=== PATIENT | female | born 1990 | race Caucasian/White ===

== ENCOUNTER 2017-05-03 23:52 | Inpatient (IN) | payer BC ==
[~2017-05-03] VITALS: Ht 154.9 cm; Wt 54.4 kg
[2017-05-03 23:56] VITALS: BP 132/102
--- NOTE | 2017-05-04 00:01 | NUR ---
PT [facility]. TAKEN TO BED 1
--- NOTE | 2017-05-04 00:15 | NUR ---
26Y BIBA C/O ODONNELL WHILE AT HOME. PT DENIES N/V/D; SKIN IS PINK/WARM/DRY; AAOX4 WITH EVEN AND STEADY GAIT; LUNGS CLEAR BL; PT DENIES ANY FEVER, CP, SOB, OR COUGH AT THIS TIME; PATIENT STATES PAIN OF 9/10 AT THIS TIME; VSS; PATIENT POSITIONED FOR COMFORT; HOB ELEVATED; BEDRAILS UP X2; BED DOWN. ER MD MADE AWARE OF PT STATUS.
--- NOTE | 2017-05-04 00:16 | NUR ---
Patient being evaluated by physician at bedside.
[2017-05-04 00:38] LABS: HEMOGLOBIN 14.7 g/dL (12.0-16.0); MEAN CORPUSCULAR HEMOGLOBIN 34 pg (27-31); MEAN CORPUSCULAR HGB CONC 34 g/dL (33-37); MEAN CORPUSCULAR VOLUME 101 fL (80-94); PLATELET COUNT (AUTO) 105 K/uL (140-450); RED BLOOD CELL COUNT(AUTO) 4.36 MIL/uL (4.20-5.40); RED CELL DISTRIBUTION WIDTH 11.7 % (11.6-13.7); WHITE BLOOD COUNT (AUTO) 4.5 K/uL (4.8-10.8)
[2017-05-04 00:51] LABS: BILIRUBIN,URINE NEGATIVE (NEGATIVE); BLOOD, URINE NEGATIVE (NEGATIVE); COLOR,URINE YELLOW (YELLOW); LEUKOCYTE ESTERASE ,URINE NEGATIVE (NEGATIVE); NITRITE, URINE POSITIVE (NEGATIVE); UGLUCOSE 2+ (NEGATIVE)
[2017-05-04 00:54] LABS: ANION GAP 11.8 (8-16); CARBON DIOXIDE 30.8 mmol/L (21-32); CHLORIDE 95 mmol/L (98-107); CREATININE 0.8 mg/dL (0.6-1.3); GFR ARICAN-AMERICAN 110 mL/min (>90); GLUCOSE 251 mg/dL (74-106); POTASSIUM 3.6 mmol/L (3.5-5.1); SODIUM SERUM 134 mmol/L (136-145); UREA NITROGEN, BLOOD 6 mg/dL (7-18)
[2017-05-04 00:55] LABS: APPEARANCE,URINE SLIGHTLY HAZY (CLEAR)
[2017-05-04 00:59] LABS: ALBUMIN 3.5 g/dL (3.4-5.0); ASPARTATE AMINOTRANSFERASE 237 U/L (15-37); LIPASE 82 U/L (73-393); TOTAL BILIRUBIN 1.8 mg/dL (0.0-1.0)
[2017-05-04 01:01] LABS: PROTHROMBIN TIME 12.1 secs (10.8-13.4)
[2017-05-04 01:04] LABS: EOSINOPHILS % (MANUAL) 2 % (0-4); LYMPHOCYTES % (MANUAL) 30 % (20-46); MONOCYTES % (MANUAL) 4 % (5-12)
[2017-05-04 01:08] LABS: RBC,URINE 0-5 (RARE) /HPF (0-5)
[2017-05-04 01:18] LABS: ACETONE, SERUM NEGATIVE (NEGATIVE)
[2017-05-04 01:18] LABS: BARBITURATE, URINE NEGATIVE ng/ml (NEG <=200); BENZODIAZEPINE, URINE POSITIVE ng/mL (NEG <=200); CANNABINOID, URINE NEGATIVE ng/mL (NEG <=50); COCAINE, URINE NEGATIVE ng/mL (NEG <=300); OPIATE, URINE NEGATIVE ng/mL (NEG <=2000); PHENCYCLIDINE SCREEN,URINE NEGATIVE ng/mL (NEG <=25)
--- NOTE | 2017-05-04 01:50 | NUR ---
PT TAKEN TO CT
--- NOTE | 2017-05-04 02:04 | NUR ---
PT RETURN FROM CT
[2017-05-04] MEDS ORDERED: AMYL-40 PO (04:04)
[2017-05-04] MEDS ORDERED: METF1000 PO (04:04)
[2017-05-04] MEDS ORDERED: PAX20 PO (04:04)
[2017-05-04] MEDS: NACL 0.9% 1,000 ML IV SCH ×2 (04:09→20:34)
[2017-05-04] MEDS ORDERED: DOCUSATE SODIUM 100 MG GELCAP PO PRN (04:10)
[2017-05-04] MEDS ORDERED: ONDANSETRON 4 MG/2 ML VIAL IM/IVP PRN (04:10)
[2017-05-04] MEDS ORDERED: HYDROcodone/APAP 7.5/325 MG 1 TAB PO PRN (04:10)
[2017-05-04] MEDS ORDERED: ACETAMINOPHEN 325 MG TAB PO PRN (04:10)
[2017-05-04] MEDS ORDERED: MECLIZINE 25 MG TAB PO PRN (04:15)
[2017-05-04] MEDS ORDERED: DEXTROSE 50% 50 ML SYR IVP PRN (04:20)
--- NOTE | 2017-05-04 04:30 | NUR ---
RECEIVED REPORT FROM [facility]. AOX4, ON ROOM AIR. SEIZURE PRECAUTIONS IN PLACE. IV LEFT AC [place]. ON TELE, ST ON ADMISSION. . PT IS ABLE TO AMBULATE BUT HAS GENERALIZED WEAKNESS. DM TYPE 2. SKIN INTACT BUT HAS BRUISES ON BUE AND BLE. BED IN LOWEST POSITION. CALL LIGHT WITHIN REACH. WILL CONTINUE TO MONITOR.
--- NOTE | 2017-05-04 04:32 | NUR ---
Patient will be admitted to care of DR. DE LA VEGA. Admited to TELE . Will go to [id number]. Belongings list completed. Report to HEIKE STEELE.
[2017-05-04] MEDS ORDERED: LORazepam 2 MG/ML VIAL IVP PRN (05:00)
[2017-05-04 05:02] LABS: CHOL/HDL RATIO 2.3 (1-4.5); FREE T4 (FREE THYROXINE) 1.21 ng/dL (0.76-1.46); THYROID STIMULATING HORMONE 2.2 uIU/mL (0.34-3.74)
[2017-05-04] MEDS ORDERED: cefTRIAXone 1,000 MG VIAL ONE (05:15)
[2017-05-04 05:20] LABS: MAGNESIUM 0.8 mg/dL (1.8-2.4)
[2017-05-04] MEDS: LORazepam 1 MG TAB PO SCH ×3 (05:50→20:31)
[2017-05-04] MEDS ORDERED: MAG SULF 2000 MG/WATER PREMIX 100 ML IV SCH (06:00)
[2017-05-04] MEDS: MORPHINE SULFATE 2 MG/ML SYR IVP PRN ×2 (06:56→14:42)
--- NOTE | 2017-05-04 07:14 | NUR ---
ENDORSED PT TO DAY SHIFT NURSE. PT IN STABLE AT THIS TIME.
--- NOTE | 2017-05-04 07:15 | NUR ---
RECEIVED PATIENT REPORT AT BEDSIDE FROM NIGHT NURSE. PATIENT IS SLEEPING COMFORTABLY AND SHOWS NO S/S OF ACUTE DISTRESS, IVF'S INFUSING WELL, EASILY AWAKEN, DENIES PAIN AT THIS TIME, ON TELE MONITOR, SKIN INTACT, DISCUSSED PATIENT POC, SAFETY AND SEIZURE PRECAUTIONS AND PATIENT VERBALIZED UNDERSTANDING, BED IN LOW POSITION WITH CALL LIGHT WITHIN REACH.
[2017-05-04] MEDS: BLOOD GLUCOSE MONITORING 1 DEV DEV FS SCH ×4 (07:37→20:25)
[2017-05-04 07:56] VITALS: BP 126/89
[2017-05-04] MEDS: metFORMIN 500 MG TAB PO SCH ×2 (08:29→17:02)
[2017-05-04] MEDS: LACTOBACILLUS RHAMNOSUS GG 1 EACH CAP PO SCH (08:29)
[2017-05-04] MEDS: FOLIC ACID 1 MG TAB PO SCH (08:29)
[2017-05-04] MEDS: MULTIVITAMIN 1 TAB PO SCH (08:29)
[2017-05-04] MEDS: PARoxetine 20 MG TAB PO SCH (08:29)
[2017-05-04] MEDS: THIAMINE 100 MG TAB PO SCH (08:29)
--- NOTE | 2017-05-04 08:36 | NUR ---
ADMINISTERED SCHEDULED MEDICATIONS, PATIENT SWALLOWED WITHOUT DIFFICULTY, PATIENT C/O ANXIETY/AGITATION AND WAS GIVEN PRN MEDICATION FOR AGITATION, PATIENT EATING BREAKFAST NOW, ALL NEEDS MET AT THIS TIME. CALL LIGHT WITHIN REACH.
[2017-05-04] MEDS ORDERED: NON-FORMULARY ITEM (Lipase/Protease/Amylase (Creon Dr 36,000 Units Capsule) 1 ECC) PO SCH (09:00)
--- NOTE | 2017-05-04 09:45 | NUR ---
PATIENT IS SLEEPING AND SHOWS NO S/S OF ACUTE DISTRESS ON ROOM AIR, BED IN LOW POSITION WITH CALL LIGHT WITHIN REACH.
[2017-05-04] MEDS ORDERED: LORazepam 1 MG TAB PO PRN (10:50)
[2017-05-04] MEDS ORDERED: LACTULOSE 20 GM/30 ML UDC PO SCH (11:30)
--- NOTE | 2017-05-04 11:30 | NUR ---
ADMINISTERED SCHEDULED MEDICATIONS, PATIENT'S NEEDS MET AT THIS TIME, BED IN LOW POSITION WITH CALL LIGHT WITHIN REACH.
[2017-05-04] MEDS: CREON DR 36,000 UNIT CAPSULE PO SCH ×2 (13:07→17:01)
--- NOTE | 2017-05-04 13:09 | NUR ---
ADMINISTERED SCHEDULED MEDICATIONS, PATIENT SHOWS NO S/S OF ACUTE DISTRESS, ALL NEEDS MET AT THIS TIME.
[2017-05-04] MEDS ORDERED: hePARIN / DEXT 5% PREMIX 250 ML IV SCH (14:00)
[2017-05-04] MEDS ORDERED: HEPARIN PER PHARMACY MC PRN (14:00)
--- NOTE | 2017-05-04 14:47 | NUR ---
PATIENT C/O OF 7/10 PAIN AT BLE,WILL REASSESS PAIN IN ONE HR.
--- NOTE | 2017-05-04 15:09 | NUR ---
LEFT WRIST 22 G IV LINE SUCCESSFULLY INSERTED FOR HEPARIN ORDER ADMINISTRATION.
[2017-05-04] MEDS: hePARIN / DEXT 5% PREMIX 250 ML IV SCH ×2 (15:53→23:31)
[2017-05-04 16:00] VITALS: BP 126/90
[2017-05-04] MEDS: INSULIN LISPRO SLIDING SCALE 100 UNITS/ML VIAL SUBQ PRN (17:08)
--- NOTE | 2017-05-04 19:12 | NUR ---
GAVE PATIENT REPORT AT BEDSIDE TO NIGHT NURSE, PATIENT ENDORSED IN STABLE CONDITION.
--- NOTE | 2017-05-04 19:13 | NUR ---
PATIENT REPORT RECEIVED FROM MORNING NURSE AT BEDSIDE. PATIENT IS AWAKE, ALERT AND ORIENTED. NO SIGNS AND SYMPTOMS OF DISTRESS NOTED. TWO IV SITES NOTED. NOTED LEFT WRIST IV CONNECTED TO CONTINUOUS HEPARIN DRIP AND RIGHT AC IV CONNECTED TO IV FLUIDS. PLAN OF CARE DISCUSSED WITH PATIENT. PATIENT VERBALIZED UNDERSTANDING. BED IN LOWEST POSITION, SIDE RAILS UP AND CALL LIGHT WITHIN REACH. WILL CONTINUE TO MONITOR.
[2017-05-04 20:00] VITALS: BP 125/88
[2017-05-04] MEDS: LACTULOSE 20 GM/30 ML UDC PO SCH (20:30)
--- NOTE | 2017-05-04 21:30 | NUR ---
MEDICATION EDUCATION GIVEN. PATIENT VERBALIZED UNDERSTANDING. DUE MEDS GIVEN ORDERED. PATIENT TOLERATED WELL, WILL CONTINUE TO MONITOR.
--- NOTE | 2017-05-04 23:20 | NUR ---
PATIENT'S PTT 32.2, HEPARIN BOLUS AND HEPARIN DRIP RATE ADJUSTED PER PHARMACY ORDER. PATIENT TOLERATED WELL. WILL CONTINUE TO MONITOR.
[2017-05-05] VITALS: BP 120/82
--- NOTE | 2017-05-05 01:25 | NUR ---
CHECKED ON PATIENT. PATIENT IS ASLEEP. NO SIGNS AND SYMPTOMS OF DISTRESS NOTED. BREATHING EVEN AND UNLABORED. WILL CONTINUE TO MONITOR.
--- NOTE | 2017-05-05 03:00 | NUR ---
CHECKED ON PATIENT. PATIENT IS ASLEEP, NO SIGNS AND SYMPTOMS OF DISTRESS NOTED. BREATHING EVEN AND UNLABORED. WILL CONTINUE TO MONITOR.
[2017-05-05 04:00] VITALS: BP 118/86
[2017-05-05 05:03] LABS: HEMATOCRIT 40.9 % (36-48); HEMOGLOBIN 13.7 g/dL (12.0-16.0); MEAN CORPUSCULAR HEMOGLOBIN 34 pg (27-31); MEAN CORPUSCULAR HGB CONC 34 g/dL (33-37); MEAN CORPUSCULAR VOLUME 101 fL (80-94); PLATELET COUNT (AUTO) 95 K/uL (140-450); RED BLOOD CELL COUNT(AUTO) 4.04 MIL/uL (4.20-5.40); RED CELL DISTRIBUTION WIDTH 11.7 % (11.6-13.7); WHITE BLOOD COUNT (AUTO) 4.5 K/uL (4.8-10.8)
[2017-05-05 05:14] LABS: EOSINOPHILS % (MANUAL) 2 % (0-4); LYMPHOCYTES % (MANUAL) 42 % (20-46); MONOCYTES % (MANUAL) 7 % (5-12)
[2017-05-05 05:17] LABS: CARBON DIOXIDE 30.5 mmol/L (21-32); CREATININE 0.6 mg/dL (0.6-1.3); POTASSIUM 3.5 mmol/L (3.5-5.1)
[2017-05-05 05:19] LABS: MAGNESIUM 1.3 mg/dL (1.8-2.4); PHOSPHORUS 4.1 mg/dL (2.5-4.9)
[2017-05-05] MEDS: LORazepam 1 MG TAB PO SCH ×2 (05:30→12:13)
--- NOTE | 2017-05-05 05:30 | NUR ---
PTT 51.8, PER HEPARIN PROTOCOL, NO CHANGE TO HEPARIN DRIP RATE. TO CONTINUE TO RUN AT 780 UNITS/HR. PATIENT TOLERATING WELL
[2017-05-05] MEDS: BLOOD GLUCOSE MONITORING 1 DEV DEV FS SCH ×2 (06:31→12:04)
--- NOTE | 2017-05-05 06:40 | NUR ---
PATIENT HAS BEEN SCREENED AND CATEGORIZED LOW NUTRITION RISK. PATIENT WILL BE SEEN WITHIN 7 DAYS OF ADMISSION. 05/12/17 JENNY DOWLING MS, RDN
--- NOTE | 2017-05-05 07:10 | NUR ---
PATIENT REPORT GIVEN TO MORNING NURSE FOR CONTINUITY OF CARE. PATIENT IS IN STABLE CONDITION
[2017-05-05 07:50] VITALS: BP 115/78
[2017-05-05] MEDS: THIAMINE 100 MG TAB PO SCH (08:52)
[2017-05-05] MEDS: MULTIVITAMIN 1 TAB PO SCH (08:53)
[2017-05-05] MEDS: LACTOBACILLUS RHAMNOSUS GG 1 EACH CAP PO SCH (08:54)
[2017-05-05] MEDS: FOLIC ACID 1 MG TAB PO SCH (08:54)
[2017-05-05] MEDS: PARoxetine 20 MG TAB PO SCH (08:55)
[2017-05-05] MEDS: metFORMIN 500 MG TAB PO SCH (08:56)
[2017-05-05] MEDS: LACTULOSE 20 GM/30 ML UDC PO SCH (08:58)
[2017-05-05] MEDS: CREON DR 36,000 UNIT CAPSULE PO SCH ×2 (08:58→12:13)
--- NOTE | 2017-05-05 09:00 | NUR ---
ADMINISTERED SCHEDULED MEDICATIONS, PATIENT SWALLOWED WITHOUT DIFFICULTY, DENIES PAIN, ALL NEEDS MET AT THIS TIME.
[2017-05-05 09:30] LABS: T4 (THYROXINE) 7.8 ug/dL (4.5-12.0)
[2017-05-05] MEDS ORDERED: MAGNESIUM OXIDE 400 MG TAB PO SCH (09:30)
[2017-05-05] MEDS ORDERED: LORA-476 PO (09:39)
[2017-05-05] MEDS ORDERED: THIA100T34 PO (09:39)
[2017-05-05] MEDS ORDERED: FOLI1TAB90 PO (09:39)
[2017-05-05] MEDS ORDERED: LACT10CA1 PO (09:48)
[2017-05-05] MEDS ORDERED: CEPH250C16 PO (09:48)
--- NOTE | 2017-05-05 10:39 | NUR ---
PATIENT IS SLEEPING, NO S/S OF ACUTE DISTRESS. BED IN LOW POSITION WITH CALL LIGHT WITHIN REACH.
[2017-05-05 12:04] VITALS: BP 131/91
[2017-05-05] MEDS: MORPHINE SULFATE 2 MG/ML SYR IVP PRN (12:13)
[2017-05-05] MEDS: INSULIN LISPRO SLIDING SCALE 100 UNITS/ML VIAL SUBQ PRN (12:18)
[2017-05-05] MEDS: NACL 0.9% 1,000 ML IV SCH (13:29)
--- NOTE | 2017-05-05 13:32 | NUR ---
PATIENT OOB AND AMB ON UNIT, PATIENT HAS STEADY GAIT, DENIES DIZZINESS OR FATIGUE. PATIENT DOES STATE FEELING LEG CRAMPS.
--- NOTE | 2017-05-05 15:00 | NUR ---
PATIENT HAS BEEN DISCHARGED, ALL PAPERWORK SIGNED, ALL QUESTIONS ANSWERED. PATIENT VERBALIZED UNDERSTANDING OF CONTINUITY OF CARE AT HOME. ALL BELONGINGS AND PRESCRIPTIONS, IN PATIENT'S POSSESSION. IV DISCONTINUED, WITH CANNULA INTACT. WRISTBANDS AND TELE MONITOR REMOVED. OFFERED PATIENT WHEELCHAIR, PATIENT LEFT UNIT, WITH MOTHER PRESENT AT SIDE, IN STABLE CONDITION.
== END 2017-05-05 15:00 | disposition home or self-care (01) | DRG 896 ==
LOC: MED 23:52 → MTU 05-04 04:09
PROVIDERS: ADMIT Student in an Organized Health Care Education/Training Program; ATTEND Student in an Organized Health Care Education/Training Program
DX: F10.231 Alcohol dependence with withdrawal delirium (principal); G93.41 Metabolic encephalopathy; E83.42 Hypomagnesemia; E11.65 Type 2 diabetes mellitus with hyperglycemia; K86.0 Alcohol-induced chronic pancreatitis; E87.1 Hypo-osmolality and hyponatremia; N39.0 Urinary tract infection, site not specified; F17.210 Nicotine dependence, cigarettes, uncomplicated; E11.9 Type 2 diabetes mellitus without complications; F41.1 Generalized anxiety disorder; Z79.84 Long term (current) use of oral hypoglycemic drugs
CPT/HCPCS: 36415; 70450; 71045; 76705; 80048; 80053; 80305; 81001; 81025; 82009; 82140; 82150; 82948; 83036; 83690; 83735; 83880; 84100; 84436; 84439; 84443; 84479; 84484; 85025; 85610; 85730; 87081; 87086; 87186; 93880; 93925; 93970; 99285; G0482; J0696; J1644; J2060; J2270; J3475; J7030; J7060; Q0092

== ENCOUNTER 2017-10-07 13:09 | Inpatient (IN) | payer BC, MEDICAID ==
[~2017-10-07] VITALS: Ht 165.1 cm; Wt 59.9 kg
[~2017-10-07 13:09] MED LIST: AMYL-40 PO; CEPH250C16 PO; FOLI1TAB90 PO; LACT10CA1 PO; LORA-476 PO; METF1000 PO; PAX20 PO; THIA100T34 PO
[2017-10-07 13:10] VITALS: BP 133/83
--- NOTE | 2017-10-07 13:12 | NUR ---
Patient BIBA to bed 7 at this time.
--- NOTE | 2017-10-07 13:20 | NUR ---
27YO F biba with c/o ETOH. Per eyelet maker report, patient drank approx 1 bottle of vodka per mother on scene. Patient altered with slurred speech. Patient is aox2 to person and YEAR. Also per eyelet maker report, patient had a witnessed seizure by mother for unknown amount time. Patient denies any pain. No oral trauma or urinary or bowel incontinence noted. LS CLEAR THROUGHOUT. RR EVEN AND UN LABORED. BS ACTIVE X4. ABD SOFT, NON-TENDER. PT WITH FULL ROM IN ALL EXTREMITIES. ER MD MADE AWARE. WILL CONTINUE TO MONITOR. hx--pancreatitis, diabetes, sz rx--metformin unknown amount or frequency to due to patient condition
--- NOTE | 2017-10-07 13:45 | NUR ---
Dr. Lancaster at bedside evaluating patient at this time.
[2017-10-07] MEDS ORDERED: NACL 0.9% 1,000 ML IV SCH (13:51)
[2017-10-07 14:22] LABS: BASOPHILS % (AUTO) 0.4 % (0.0-2.0); EOSINOPHILS % (AUTO) 0.3 % (0.0-4.0); HEMATOCRIT 42.6 % (36-48); HEMOGLOBIN 14.9 g/dL (12.0-16.0); LYMPHOCYTES # (AUTO) 1.9 K/uL (2.5-16.5); LYMPHOCYTES % (AUTO) 20.5 % (20.5-51.1); MEAN CORPUSCULAR HEMOGLOBIN 32 pg (27-31); MEAN CORPUSCULAR HGB CONC 35 g/dL (33-37); MONOCYTES # (AUTO) 0.4 K/uL (0.8-1.0); MONOCYTES % (AUTO) 4.7 % (1.7-9.3); NEUTROPHILS # (AUTO) 6.7 K/uL (1.8-7.7); NEUTROPHILS % (AUTO) 74.1 % (42.2-75.2); PLATELET COUNT (AUTO) 292 K/uL (140-450); RED BLOOD CELL COUNT(AUTO) 4.68 MIL/uL (4.20-5.40); RED CELL DISTRIBUTION WIDTH 12.5 % (11.6-13.7)
[2017-10-07 14:33] LABS: APPEARANCE,URINE CLEAR (CLEAR); BILIRUBIN,URINE NEGATIVE (NEGATIVE); BLOOD, URINE NEGATIVE (NEGATIVE); COLOR,URINE YELLOW (YELLOW); LEUKOCYTE ESTERASE ,URINE NEGATIVE (NEGATIVE); NITRITE, URINE NEGATIVE (NEGATIVE); PH,URINE 5.5 (5.0-9.0); UGLUCOSE 3+ (NEGATIVE)
[2017-10-07 14:53] LABS: BARBITURATE, URINE NEG. ng/ml (NEG <=200); BENZODIAZEPINE, URINE NEG. ng/mL (NEG <=200); CANNABINOID, URINE NEG. ng/mL (NEG <=50); COCAINE, URINE NEG. ng/mL (NEG <=300); OPIATE, URINE NEG. ng/mL (NEG <=2000); PHENCYCLIDINE SCREEN,URINE NEG. ng/mL (NEG <=25)
[2017-10-07 14:54] LABS: ALBUMIN 3.7 g/dL (3.4-5.0); ANION GAP 14.4 (8-16); CREATININE 0.6 mg/dL (0.6-1.3); POTASSIUM 3.4 mmol/L (3.5-5.1); TOTAL BILIRUBIN 0.3 mg/dL (0.0-1.0)
[2017-10-07 14:55] LABS: PROTHROMBIN TIME 9.9 secs (10.8-13.4)
--- NOTE | 2017-10-07 15:30 | NUR ---
PT CALLED MOTHER. GORDON [phone]
[2017-10-07] MEDS ORDERED: ONDANSETRON 4 MG/2 ML VIAL IM/IVP PRN (16:45)
[2017-10-07] MEDS ORDERED: ACETAMINOPHEN 325 MG TAB PO PRN (16:45)
[2017-10-07] MEDS ORDERED: DOCUSATE SODIUM 100 MG GELCAP PO PRN (16:45)
--- NOTE | 2017-10-07 16:58 | NUR ---
XRAY AT BEDSIDE
--- NOTE | 2017-10-07 16:58 | NUR ---
RESIDENT AT BEDSIDE
[2017-10-07] MEDS ORDERED: MULTIVITAMIN-12 10 ML, THIAMINE 100 MG, MAGNESIUM SULFATE 50% 2,000 MG, FOLIC ACID 5 MG... IV SCH ×5 (17:00)
--- NOTE | 2017-10-07 17:10 | NUR ---
pt to ct via gurney in no appearent distress with precision structural metal fitter
--- NOTE | 2017-10-07 17:20 | NUR ---
pt returned from ct
[2017-10-07 17:41] LABS: MAGNESIUM 1.7 mg/dL (1.8-2.4); PHOSPHORUS 3.6 mg/dL (2.5-4.9); THYROID STIMULATING HORMONE 0.55 uIU/mL (0.34-3.74)
--- NOTE | 2017-10-07 17:53 | NUR ---
pt appears to be sleeping in no appearent distress. rr even and unlabored
--- NOTE | 2017-10-07 18:11 | NUR ---
lab at bedside
[2017-10-07] MEDS ORDERED: MAG SULF 2000 MG/WATER PREMIX 50 ML IV SCH (18:30)
--- NOTE | 2017-10-07 19:05 | NUR ---
RECEIVED PT FOR, ER NURSE. PT HAS DX OF ETOH. PT HAS IV ON RT AC 18 G. BANANA BAG INFUSING AT 250ML/HR. TOOK MRSA NARES AND VS FROM PT. VS NOTED BP 108/76, T 98.1, O2 98% RA, RR 16, HR 76. PT COMPLAINING OF PAIN ALL OVER BODAY. WANTED TO DRINK WATER. PT AO X3, SLEEPY AT THIS TIME. PT HAS IN LOWEST POSITION., SIDED RAILS UPX2, HAS ART COORDINATOR RAILS FOR SEIZURE PRECAUTION. PT STABLE AT THIS TIME.
--- NOTE | 2017-10-07 19:07 | NUR ---
Patient will be admitted to care of [facility]. Admited to TELE. Will go to room 119B. Belongings list completed. Report to FÁTIMA STEELE .
--- NOTE | 2017-10-07 19:10 | NUR ---
ENDORSED PT TO PM NURSE. PT IN STABLE CONDITION.
--- NOTE | 2017-10-07 19:15 | NUR ---
RECEIVED REPORT FROM DAY SHIFT NURSE. PT IN BED. AA0X3. NO RESP DISTRESS NOTED. NO C/O PAIN AT THIS TIME. PT ON ROOM AIR. SKIN INTACT. IV TO RIGHT AC #18G, BANANA BAG AT 250 ML/HR, INFUSING WELL. ORIENTED PT TO ROOM. SEIZURE AND FALL PRECAUTION IN PLACE. CALL LIGHT WITHIN REACH.
[2017-10-07 20:00] VITALS: BP 108/76
[2017-10-07] MEDS ORDERED: KCL 20 MEQ/WATER INJ PREMIX 100 ML IV SCH ×2 (21:00→22:00)
--- NOTE | 2017-10-07 21:30 | NUR ---
PT ASKED FOR SNACK. SNACK PROVIDED. NEEDS MET AT THIS TIME.
[2017-10-07] MEDS: DEXT 5% / NACL 0.45% 1,000 ML IV SCH (21:35)
[2017-10-07] MEDS ORDERED: ZOLPIDEM 5 MG TAB PO SCH (22:00)
[2017-10-07] MEDS: HYDROcodone/APAP 10/325 MG 1 TAB TAB PO PRN (22:19)
--- NOTE | 2017-10-07 22:20 | NUR ---
PT C/O GEN. PAIN 09/27 AND ASKING FOR MEDICINE TO MAKE HER SLEEP. DR. WILKINSON ORDERED NORCO 10/325 MG FOR PAIN AND AMBIEN TO MAKE HER SLEEP.
[2017-10-08] VITALS: BP 129/72
--- NOTE | 2017-10-08 00:30 | NUR ---
PT RESTING IN BED WITH EYES CLOSED. NO S/S OF PAIN. NO S/S OF SEIZURE ACTIVITY NOTED.
--- NOTE | 2017-10-08 03:05 | NUR ---
PT SLEEPING BUT EASILY AROUSABLE. NO S/S OF DISTRESS NOTED.
[2017-10-08] MEDS: LORazepam 2 MG/ML VIAL IM/IVP PRN ×3 (03:57→20:01)
--- NOTE | 2017-10-08 03:57 | NUR ---
PT STATED SHE'S ANXIOUS. ATIVAN 1 MG IVP GIVEN ORDERED.
[2017-10-08 04:00] VITALS: BP 131/80
[2017-10-08] MEDS: DEXT 5% / NACL 0.45% 1,000 ML IV SCH (05:13)
--- NOTE | 2017-10-08 06:00 | NUR ---
PT SLEEPING. NO S/S PAIN. NO S/S OF RESP DISTRESS. SEIZURE AND FALL PRECAUTION IN PLACE. CALL LIGHT WITHIN REACH.
[2017-10-08 06:12] LABS: BASOPHILS % (AUTO) 0.5 % (0.0-2.0); EOSINOPHILS # (AUTO) 0.1 K/uL (0-0.4); EOSINOPHILS % (AUTO) 1.8 % (0.0-4.0); HEMATOCRIT 34.8 % (36-48); HEMOGLOBIN 12.6 g/dL (12.0-16.0); LYMPHOCYTES # (AUTO) 2.3 K/uL (2.5-16.5); LYMPHOCYTES % (AUTO) 33.2 % (20.5-51.1); MEAN CORPUSCULAR HEMOGLOBIN 32 pg (27-31); MEAN CORPUSCULAR HGB CONC 36 g/dL (33-37); MEAN CORPUSCULAR VOLUME 89.9 fL (80-94); MONOCYTES # (AUTO) 0.4 K/uL (0.8-1.0); MONOCYTES % (AUTO) 5.3 % (1.7-9.3); NEUTROPHILS # (AUTO) 4.1 K/uL (1.8-7.7); NEUTROPHILS % (AUTO) 59.2 % (42.2-75.2); PLATELET COUNT (AUTO) 219 K/uL (140-450); RED BLOOD CELL COUNT(AUTO) 3.88 MIL/uL (4.20-5.40); RED CELL DISTRIBUTION WIDTH 12.5 % (11.6-13.7); WHITE BLOOD COUNT (AUTO) 6.9 K/uL (4.8-10.8)
[2017-10-08 06:31] LABS: ANION GAP 11.9 (8-16); CARBON DIOXIDE 26.5 mmol/L (21-32); CREATININE 0.4 mg/dL (0.6-1.3); POTASSIUM 3.4 mmol/L (3.5-5.1)
[2017-10-08] MEDS ORDERED: DEXTROSE 50% 50 ML SYR IVP PRN (06:35)
[2017-10-08 06:40] LABS: MAGNESIUM 1.6 mg/dL (1.8-2.4)
--- NOTE | 2017-10-08 07:15 | NUR ---
ENDORSED PT TO DAY SHIFT NURSE. PT IN STABLE CONDITION.
[2017-10-08 07:20] LABS: CHOL/HDL RATIO 1.9 (1-4.5)
--- NOTE | 2017-10-08 07:20 | NUR ---
RECEIVED REPORT FROM PAINT PREPARER NURSE, PT IS SLEEPING BUT EASILY AWAKEN, PT IS AAOX4, AMBULATORY, IV IS PATENT, INTACT, FLUSHING WELL, PT IS ON ROOM AIR, NO S/S OF RESPIRATORY DISTRESS OR DISCOMFORT NOTED, DISCUSSED PLAN OF CARE WITH PT, PT VERBALIZED UNDERSTANDING, SAFETY/FALL/SEIZURE PRECAUTIONS ARE IN PLACE, CALL LIGHT IS WITHIN REACH, WILL CONTINUE TO MONITOR.
[2017-10-08] MEDS: BLOOD GLUCOSE MONITORING 1 DEV DEV FS SCH ×4 (07:30→20:40)
[2017-10-08 08:00] VITALS: BP 130/91
[2017-10-08 08:35] LABS: T4 (THYROXINE) 6.1 ug/dL (4.5-12.0)
[2017-10-08] MEDS: metFORMIN 500 MG TAB PO SCH ×2 (08:53→17:45)
[2017-10-08] MEDS: FOLIC ACID 1 MG TAB PO SCH (08:53)
[2017-10-08] MEDS: chlordiazePOXIDE 25 MG CAP PO SCH ×3 (08:54→17:45)
[2017-10-08] MEDS: MULTIVITAMIN 1 TAB PO SCH (08:54)
--- NOTE | 2017-10-08 08:54 | NUR ---
PATIENT HAS BEEN SCREENED AND CATEGORIZED MODERATE NUTRITION RISK. PATIENT WILL BE SEEN WITHIN 3-5 DAYS OF ADMISSION. 10/10/17 10/12/[address]
[2017-10-08] MEDS ORDERED: PARoxetine 20 MG TAB PO SCH (09:00)
[2017-10-08] MEDS ORDERED: POTASSIUM CHLORIDE 10 MEQ TABER PO SCH (09:00)
[2017-10-08] MEDS ORDERED: NON-FORMULARY ITEM (Lipase/Protease/Amylase (Creon Dr 36,000 Units Capsule) 1 ECC) PO SCH (09:00)
--- NOTE | 2017-10-08 09:00 | NUR ---
PATIENT IN BED SLEEPING, WOKE PATIENT TO ADMINISTER MEDICATIONS. PATIENT VERY DROWSY, AND SLIGHTLY CONFUSED AAOX3, WILL CONTINUE TO MONITOR.
[2017-10-08] MEDS: INSULIN LISPRO SLIDING SCALE 100 UNITS/ML VIAL SUBQ PRN ×4 (09:08→21:06)
[2017-10-08] MEDS ORDERED: CALCIUM CARB/VIT-D 500 MG/200 IU 1 TAB PO SCH (09:30)
[2017-10-08] MEDS ORDERED: MAG SULF 2000 MG/WATER PREMIX 50 ML IV SCH (09:30)
[2017-10-08] MEDS ORDERED: KCL 20 MEQ/WATER INJ PREMIX 100 ML IV SCH (09:30)
[2017-10-08] MEDS ORDERED: SODIUM PHOS / POTASSIUM PHOS 1 PKT PDR PO SCH (09:30)
--- NOTE | 2017-10-08 11:30 | NUR ---
PATIENT IN BED WITH NEURO MD AT BEDSIDE FOR CONSULT. PATIENT DROWSY BUT OBEYS COMMANDS AND ANSWERS QUESTIONS. NO S/S OF PAIN OR RESPIRATORY DISTRESS, WILL CONTINUE TO MONITOR PATIENT.
[2017-10-08 12:00] VITALS: BP 129/88
[2017-10-08] MEDS: AMYLASE/LIPASE/PROTEASE 1 CAPDR PO SCH ×3 (13:00→17:46)
--- NOTE | 2017-10-08 13:10 | NUR ---
PATIENT IN BED SLEEPING, ADMINISTERED MEDICATION FOR PATIENT, PATIENT TOLERATED WELL. PATIENT SHOWS NO SIGNS OR SYMPTOMS OF PAIN OR RESPIRATORY DISTRESS.
--- NOTE | 2017-10-08 15:45 | NUR ---
OBSERVED PATIENT AMBULATING FROM THE RESTROOM TO BE, PATIENT STATES HER ANXIETY IS STARTING AGAIN. EXPLAINED TO PATIENT TO PERFORM BREATHING EXERCISE UNTIL TIME FOR HER NEXT MEDICATION DOSE. PATIENT VERBALIZES UNDERSTANDING AND LAID IN BED. PATIENT CLOSES EYES AND IS RESTING IN BED, WILL CONTINUE TO MONITOR.
[2017-10-08] MEDS: HYDROcodone/APAP 10/325 MG 1 TAB TAB PO PRN (16:25)
[2017-10-08 18:00] VITALS: BP 133/90
[2017-10-08] MEDS ORDERED: NACL 0.9% 250 ML IV SCH (18:45)
--- NOTE | 2017-10-08 19:15 | NUR ---
PATIENT IS IN BED RESTING, NO SIGNS OR SYMPTOMS OF DISTRESS, PATIENT STABLE, ENDORSED CONTINUITY OF CARE TO SEARCHLIGHT OPERATOR NURSE.
--- NOTE | 2017-10-08 19:16 | NUR ---
REPORT RECEIVED FROM AM NURSE AT BEDSIDE. PT IN STABLE CONDITION. AAOX3. BOARD UPDATED AND INTRODUCED SELF TO PT. IV SITE RIGHT AC 20G PATENT AND INTACT. SKIN WARM, DRY, AND INTACT WITH NO OPEN WOUNDS. PT ON SEIZURE PRECAUTIONS. BED LOCKED IN LOW POSITION. CALL AVERY WITHIN REACH.
[2017-10-08 20:00] VITALS: BP 125/86
--- NOTE | 2017-10-08 20:00 | NUR ---
PT CALLED REQUESTING FOR ATIVAN. 1MG OF ATIVAN GIVEN IV. PT TOLERATED WELL.
[2017-10-08] MEDS ORDERED: ZOLPIDEM 5 MG TAB PO SCH (21:00)
--- NOTE | 2017-10-08 21:05 | NUR ---
CAYETANO GIVEN. PT TOLERATED WELL. Addendum: 10/09/17 at 0025 by Skyler Clarke RN BS 225. 4 UNITS OF INSULIN GIVEN.
--- NOTE | 2017-10-08 23:45 | NUR ---
PT VS STABLE. NO S/S OF DISTRESS. PT SLEEPING COMFORTABLY BUT AROUSABLE. WILL CONTINUE TO MONITOR.
[2017-10-09] VITALS: BP 117/82
--- NOTE | 2017-10-09 02:10 | NUR ---
PT SLEEPING COMFORTABLY SUPINE. CHEST EXPANSION IS VISIBLE. NO S/S OF DISTRESS. WILL CONTINUE TO MONITOR.
--- NOTE | 2017-10-09 03:55 | NUR ---
VS STABLE. PT IN STABLE CONDITION. WILL CONTINUE TO MONITOR.
[2017-10-09 04:00] VITALS: BP 124/82
[2017-10-09] MEDS: BLOOD GLUCOSE MONITORING 1 DEV DEV FS SCH ×2 (05:28→11:30)
[2017-10-09] MEDS: INSULIN LISPRO SLIDING SCALE 100 UNITS/ML VIAL SUBQ PRN ×2 (05:29→14:38)
--- NOTE | 2017-10-09 05:29 | NUR ---
BS 255. 6 UNITS OF INSULIN GIVEN. PT TOLERATED WELL.
[2017-10-09 06:15] LABS: BASOPHILS % (AUTO) 0.3 % (0.0-2.0); EOSINOPHILS # (AUTO) 0.1 K/uL (0-0.4); EOSINOPHILS % (AUTO) 1.6 % (0.0-4.0); HEMATOCRIT 39.7 % (36-48); HEMOGLOBIN 13.8 g/dL (12.0-16.0); LYMPHOCYTES # (AUTO) 1.7 K/uL (2.5-16.5); LYMPHOCYTES % (AUTO) 24.4 % (20.5-51.1); MEAN CORPUSCULAR HEMOGLOBIN 32 pg (27-31); MEAN CORPUSCULAR HGB CONC 35 g/dL (33-37); MEAN CORPUSCULAR VOLUME 91.3 fL (80-94); MONOCYTES # (AUTO) 0.3 K/uL (0.8-1.0); MONOCYTES % (AUTO) 4.7 % (1.7-9.3); NEUTROPHILS # (AUTO) 4.7 K/uL (1.8-7.7); PLATELET COUNT (AUTO) 224 K/uL (140-450); RED BLOOD CELL COUNT(AUTO) 4.35 MIL/uL (4.20-5.40); RED CELL DISTRIBUTION WIDTH 12.5 % (11.6-13.7); WHITE BLOOD COUNT (AUTO) 6.8 K/uL (4.8-10.8)
[2017-10-09 06:35] LABS: ANION GAP 12.4 (8-16); CREATININE 0.6 mg/dL (0.6-1.3); POTASSIUM 4.4 mmol/L (3.5-5.1)
[2017-10-09 06:38] LABS: MAGNESIUM 1.7 mg/dL (1.8-2.4); PHOSPHORUS 2.9 mg/dL (2.5-4.9)
--- NOTE | 2017-10-09 07:10 | NUR ---
RECEIVED PATIENT REPORT AT BEDSIDE. PATIENT ASLEEP BUT AROUSABLE. NO S/S OF DISTRESS NOTED. PATIENT ON TELE MONITORING. BED LOWERED WITH CALL LIGHT WITHIN REACH. WILL CONTINUE TO MONITOR
--- NOTE | 2017-10-09 07:15 | NUR ---
REPORT GIVEN TO AM NURSE AT BEDSIDE. PT IN STABLE CONDITION.
[2017-10-09 08:00] VITALS: BP 132/86
[2017-10-09] MEDS ORDERED: LIB25 PO (08:15)
[2017-10-09] MEDS ORDERED: CITA20TA15 PO (08:15)
[2017-10-09] MEDS ORDERED: CITALOPRAM 20 MG TAB PO SCH (09:00)
[2017-10-09] MEDS ORDERED: INSULIN LANTUS 100 UNITS/ML 10 ML VIAL SUBQ SCH ×3 (09:00)
[2017-10-09] MEDS: FOLIC ACID 1 MG TAB PO SCH (09:54)
[2017-10-09] MEDS: AMYLASE/LIPASE/PROTEASE 1 CAPDR PO SCH ×2 (09:54→14:36)
[2017-10-09] MEDS: metFORMIN 500 MG TAB PO SCH (09:54)
[2017-10-09] MEDS: MULTIVITAMIN 1 TAB PO SCH (09:55)
[2017-10-09] MEDS: chlordiazePOXIDE 25 MG CAP PO SCH ×2 (09:55→14:36)
--- NOTE | 2017-10-09 10:00 | NUR ---
SPOKE TO PATIENT'S MOTHER ON THE PHONE AND INFORMED HER THAT THE PATIENT IS BEING DISCHARGED TODAY. PER PATIENT'S MOTHER SHE IS UNABLE TO CUSTOMER SOLUTIONS SPECIALIST HER DAUGHTER UNTIL 7PM AT NIGHT. PATIENT'S MOTHER STATES THAT SHE WILL TRY TO CONTACT SOMEBODY TO CUSTOMER SOLUTIONS SPECIALIST HER DAUGHTER.
[2017-10-09 12:00] VITALS: BP 132/93
--- NOTE | 2017-10-09 16:30 | NUR ---
PATIENT DISCHARGED TO HOME. DISCHARGE INSTRUCTIONS AND DISCHARGE PRESCRIPTIONS GIVEN. PATIENT VERBALIZED UNDERSTANDING. IV LINE DISCONTINUED. TELE MONITOR TAKEN OFF. PATIENT LEFT IN STABLE CONDITION
--- NOTE | 2017-10-09 16:45 | NUR ---
DR PICKARD SPOKE WITH THE PATIENT'S MOTHER AND PATIENT AND DISCUSSED WITH THEM THAT PATIENT HAS ALREADY BEEN MEDICALLY CLEARED FOR DISCHARGE
== END 2017-10-09 16:30 | disposition home or self-care (01) | DRG 816 ==
LOC: MED 13:09 → UNDOADMIN 16:21 → MTU 16:21 → MMU 16:21 → MTU 19:00 → MMU 19:00
PROVIDERS: ADMIT General Practice; ATTEND General Practice
DX: T51.0X1A Toxic effect of ethanol, accidental (unintentional), initial encounter (principal); G93.41 Metabolic encephalopathy; R56.9 Unspecified convulsions; E11.65 Type 2 diabetes mellitus with hyperglycemia; K86.0 Alcohol-induced chronic pancreatitis; E83.42 Hypomagnesemia; E83.39 Other disorders of phosphorus metabolism; K70.10 Alcoholic hepatitis without ascites; E87.1 Hypo-osmolality and hyponatremia; F33.1 Major depressive disorder, recurrent, moderate; F10.129 Alcohol abuse with intoxication, unspecified; E87.6 Hypokalemia; F17.210 Nicotine dependence, cigarettes, uncomplicated; F41.1 Generalized anxiety disorder; Y90.8 Blood alcohol level of 240 mg/100 ml or more; E83.51 Hypocalcemia; K86.1 Other chronic pancreatitis; Z79.899 Other long term (current) drug therapy; Z81.1 Family history of alcohol abuse and dependence; Z82.49 Family history of ischemic heart disease and other diseases of the circulatory system
CPT/HCPCS: 36415; 70450; 71045; 80048; 80053; 80305; 81003; 82140; 82550; 82948; 83036; 83690; 83735; 84100; 84134; 84436; 84443; 84484; 85025; 85610; 85730; 87081; 93005; 96361; 96365; 99285; A9153; G0482; J1815; J2060; J3411; J3475; J3480; J3490; J7030; Q0092